=== PATIENT | female | born 1995 ===

== ENCOUNTER 2021-11-20 19:04 | Emergency (ER) | payer MEDICAID, SELFPAY ==
[2021-11-20 19:10] VITALS: BP 135/88; PULSE 87; RESP 18; TEMP 36.7; O2SAT 98; BMI 31.1
--- NOTE | 2021-11-20 19:20 | CRLHL7_ITS ---
For Patients: As a result of the Cures Act, medical imaging exams and procedure reports are released immediately into your electronic medical record. You may view this report before your referring provider. If you have questions, please contact your health care provider. INDICATION: Cough and dyspnea COMPARISON: December 09, 2020 TECHNIQUE: Single-view study FINDINGS: TUBES AND LINES: None. HEART AND MEDIASTINUM: The heart size is normal. The mediastinal contour appears normal for patient age. LUNGS AND PLEURAL SPACES: The lungs appear normal.The pleural spaces are unremarkable. OSSEOUS STRUCTURES: Age-appropriate appearance. No acute focal finding. IMPRESSION: No evidence of active pulmonary disease. Dictated by Fahad Foster MD @ 11/20/2021 8:07:14 PM (Electronically Signed)
--- NOTE | 2021-11-20 19:22 | ED_ITS ---
HPI - General Adult General Time Seen by Provider: : <Bernardino Catherine MD - Last Filed: 11/20/21 19:25> Date Seen: 11/20/21 <Bernardino Catherine MD - Last Filed: 11/20/21 19:25> Chief complaint: Shortness of Breath/Dyspnea <Bernardino Catherine MD - Last Filed: 11/20/21 19:25> Stated complaint: Wheezing <Bernardino Catherine MD - Last Filed: 11/20/21 19:25> Time Seen by Provider: 11/20/21 19:14 <Bernardino Catherine MD - Last Filed: 11/20/21 19:25> Source: patient <Bernardino Catherine MD - Last Filed: 11/20/21 19:25> Mode of arrival: ambulatory <Bernardino Catherine MD - Last Filed: 11/20/21 19:25> Limitations: no limitations <Bernardino Catherine MD - Last Filed: 11/20/21 19:25> History of Present Illness HPI narrative: 26-year-old female who comes in today with wheezing and cough. This started yesterday and continued today. She has a slight runny nose. She denies fever or chills. Some shortness of breath with activity. No chest pain. Daughter is ill at home with an upper respiratory infection. Patient has a history of asthma and has been using albuterol inhaler nebulizer today with minimal improvement. She denies any lower extremity swelling. No lightheadedness or dizziness. <Bernardino Catherine MD - Last Filed: 11/20/21 19:25> Related Data Home medications: Home Medications Medication Instructions Recorded Confirmed acetaminophen 500 mg tablet 500 mg PO Q4-6H PRN 11/20/21 11/20/21 albuterol sulfate 2.5 mg/3 mL 2.5 mg INHALATION Q4-6H PRN 11/20/21 11/20/21 (0.083 %) solution for nebulization albuterol sulfate 90 mcg/actuation 2 inh INHALATION Q4-6H PRN 11/20/21 11/20/21 aerosol inhaler duloxetine 30 mg capsule,delayed 30 mg PO DAILY 11/20/21 11/20/21 release (Cymbalta) ferrous sulfate 325 mg (65 mg 325 mg PO BID 11/20/21 11/20/21 iron) tablet fluoxetine 20 mg capsule (Prozac) 60 mg PO DAILY 11/20/21 11/20/21 fluticasone propionate 50 2 spray INTRANASAL DAILY PRN 11/20/21 11/20/21 mcg/actuation nasal spray,suspension (Flonase Allergy Relief) hydroxyzine HCl 25 mg tablet 25 mg PO Q6H PRN 11/20/21 11/20/21 levalbuterol tartrate 45 2 inh INHALATION Q4-6H PRN 11/20/21 11/20/21 mcg/actuation aerosol inhaler (Xopenex HFA) levonorgestrel 20 mcg/24 hours (7 INTRAUTERINE 11/20/21 yrs) 52 mg intrauterine device (Mirena) mometasone-formoterol HFA 100 2 inh INHALATION BID 11/20/21 11/20/21 mcg-5 mcg/actuation aerosol inhaler (Dulera) montelukast 10 mg tablet 10 mg PO DAILY 11/20/21 11/20/21 (Singulair) polyethylene glycol 3350 17 gram 17 g PO DAILY 11/20/21 11/20/21 oral powder packet (Miralax) vits,calcium no.73-iron 1 tab PO DAILY 11/20/21 11/20/21 fum 28 mg iron-folic acid 1 mg tablet triamcinolone acetonide 0.5 % 1 applic TOPICAL BID 11/20/21 11/20/21 topical cream <Bernardino Catherine MD - Last Filed: 11/20/21 19:25> Allergies/adverse reactions: Allergies Allergy/AdvReac Type Severity Reaction Status Date / Time nickel Allergy Mild contact Verified 11/20/21 19:11 dermatitis <Bernardino Catherine MD - Last Filed: 11/20/21 19:25> Review of Systems Status of ROS: Reports: 10 or more systems reviewed and unremarkable except as noted in History and below <Bernardino Catherine MD - Last Filed: 11/20/21 19:25> [facility] Medical History: Medical History (Updated 11/20/21 @ 20:22 by Ramon Arias MD) Acute eczema Adjustment disorder with mixed anxiety and depressed mood Anxiety Aphthous ulcer Asthma, mild persistent Cold sore Contact dermatitis due to nickel Dysmenorrhea Encounter for vaginal delivery Herpes simplex type 1 infection Hyperemesis gravidarum Major depressive disorder, recurrent severe without psychotic features Post-traumatic stress disorder, unspecified depression hemorrhage <Bernardino Catherine MD - Last Filed: 11/20/21 19:25> Exam Const: Vital Signs, click to edit/add: Vital Signs - 24 hr 11/20/21 19:10 Temperature 98.0 F Pulse Rate [Left P ulse Oximeter] 87 Respiratory Rate 18 Blood Pressure [Le ft Upper Arm] 135/88 Pulse Oximetry 98 <Bernardino Catherine MD - Last Filed: 11/20/21 19:25> Vital Signs, click to edit/add: Vital Signs - 24 hr 11/20/21 19:10 Temperature 98.0 F Pulse Rate [Left P ulse Oximeter] 87 Respiratory Rate 18 Blood Pressure [Le ft Upper Arm] 135/88 Pulse Oximetry 98 <Ramon Arias MD - Last Filed: 11/20/21 20:22> Documenting provider has reviewed patient's vital signs: yes <Bernardino Catherine MD - Last Filed: 11/20/21 19:25> Common normals: no apparent distress, oriented x3, alert and well nourished <Bernardino Catherine MD - Last Filed: 11/20/21 19:25> HENMT: Common normals: normocephalic, head/scalp atraumatic, external ears normal and external nose normal <Bernardino Catherine MD - Last Filed: 11/20/21 19:25> Head and scalp: normocephalic and atraumatic <Bernardino Catherine MD - Last Filed: 11/20/21 19:25> Nose: external nose normal <Bernardino Catherine MD - Last Filed: 11/20/21 19:25> External ear: external ears normal <Bernardino Catherine MD - Last Filed: 11/20/21 19:25> Eye: Common normals: PERRL and conjunctivae normal <Bernardino Catherine MD - Last Filed: 11/20/21 19:25> Conjunctiva: conjunctiva(e) normal <Bernardino Catherine MD - Last Filed: 11/20/21 19:25> Pupil: PERRL <Bernardino Catherine MD - Last Filed: 11/20/21 19:25> Neck & C-Spine: Common normals: full ROM, no lymphadenopathy and supple <Bernardino Catherine MD - Last Filed: 11/20/21 19:25> Chest: Common normals: palpation of chest normal <Bernardino Catherine MD - Last Filed: 11/20/21 19:25> Resp: Common normals: normal respiratory effort <Bernardino Catherine MD - Last Filed: 11/20/21 19:25> Effort & inspection: able to speak in complete sentences <Bernardino Catherine MD - Last Filed: 11/20/21 19:25> Other: Audible wheezing on exam but on auscultation mild expiratory wheezes bilaterally with upper airway wheezing. No hoarseness or hot potato voice. <Bernardino Catherine MD - Last Filed: 11/20/21 19:25> Cardio: Common normals: regular rate, regular rhythm and no murmurs <Bernardino Catherine MD - Last Filed: 11/20/21 19:25> Rate: regular rate <Bernardino Catherine MD - Last Filed: 11/20/21 19:25> Rhythm: regular rhythm <Bernardino Catherine MD - Last Filed: 11/20/21 19:25> GI: Common normals: Normal to inspection, nondistended, normoactive bowel sounds present, soft to palpation and non-tender <Bernardino Catherine MD - Last Filed: 11/20/21 19:25> Palpation: soft <Bernardino Catherine MD - Last Filed: 11/20/21 19:25> : Common normals: no CVA tenderness <Bernardino Catherine MD - Last Filed: 11/20/21 19:25> Bladder/kidney exam: no CVA tenderness <Bernardino Catherine MD - Last Filed: 11/20/21 19:25> Back & Pelvis: Common normals: no CVA tenderness and thoracic and lumbar spine normal to inspection <Bernardino Catherine MD - Last Filed: 11/20/21 19:25> Extremity: Common normals: normal to inspection, full ROM and no pedal edema <Bernardino Catherine MD - Last Filed: 11/20/21 19:25> Neuro: Common normals: oriented x3, CN's II-XII intact bilaterally and no focal motor deficits <Bernardino Catherine MD - Last Filed: 11/20/21 19:25> Sensorium/orientation: alert <Bernardino Catherine MD - Last Filed: 11/20/21 19:25> Psych: Common normals: mental status grossly normal <Bernardino Catherine MD - Last Filed: 11/20/21 19:25> Skin: Common normals: no rashes or lesions noted <Bernardino Catherine MD - Last Filed: 11/20/21 19:25> General skin exam: no rashes or lesions noted <Bernardino Catherine MD - Last Filed: 11/20/21 19:25> Course Course Hospital Course: Chest X ray unremarkable <Bernardino Catherine MD - Last Filed: 11/20/21 19:25> Reevaluation(s) Reevaluation #1: Sign out to Dr. Arias pending lab results and clinical course. <Bernardino Catherine MD - Last Filed: 11/20/21 19:25> Time: 20:00 <Bernardino Catherine MD - Last Filed: 11/20/21 19:25> Reevaluation #2: Pt feeling better after nebulizer treatment. <Ramon Arais MD - Last Filed: 11/20/21 20:22> Vital Signs Vital signs: Initial Vital Signs Temperature 98.0 F 11/20/21 19:10 Temperature Source Temporal Artery Scan 11/20/21 19:10 Pulse Rate 87 11/20/21 19:10 Respiratory Rate 18 11/20/21 19:10 Blood Pressure 135/88 11/20/21 19:10 Blood Pressure Mean 103 11/20/21 19:10 Blood Pressure Position Sitting 11/20/21 19:10 Pulse Oximetry 98 11/20/21 19:10 Oxygen Delivery Method 11/20/21 19:10 Vital Signs Temperature 98.0 F 11/20/21 19:10 Pulse Rate 87 11/20/21 19:10 Respiratory Rate 18 11/20/21 19:10 Blood Pressure 135/88 11/20/21 19:10 Pulse Oximetry 98 11/20/21 19:10 Temperature 98.0 F 11/20/21 19:10 Pulse Rate 87 11/20/21 19:10 Respiratory Rate 18 11/20/21 19:10 Blood Pressure 135/88 11/20/21 19:10 Pulse Oximetry 98 11/20/21 19:10 <Bernardino Catherine MD - Last Filed: 11/20/21 19:25> Initial Vital Signs Temperature 98.0 F 11/20/21 19:10 Temperature Source Temporal Artery Scan 11/20/21 19:10 Pulse Rate 87 11/20/21 19:10 Respiratory Rate 18 11/20/21 19:10 Blood Pressure 135/88 11/20/21 19:10 Blood Pressure Mean 103 11/20/21 19:10 Blood Pressure Position Sitting 11/20/21 19:10 Pulse Oximetry 98 11/20/21 19:10 Oxygen Delivery Method 11/20/21 19:10 Vital Signs Temperature 98.0 F 11/20/21 19:10 Pulse Rate 87 11/20/21 19:10 Respiratory Rate 18 11/20/21 19:10 Blood Pressure 135/88 11/20/21 19:10 Pulse Oximetry 98 11/20/21 19:10 Temperature 98.0 F 11/20/21 19:10 Pulse Rate 87 11/20/21 19:10 Respiratory Rate 18 11/20/21 19:10 Blood Pressure 135/88 11/20/21 19:10 Pulse Oximetry 98 11/20/21 19:10 <Ramon Arias MD - Last Filed: 11/20/21 20:22> Medical Decision Making MDM Narrative Medical decision making narrative: Patient seen and examined, prior records reviewed. Differential diagnosis includes but not limited to upper respiratory infection, asthma exacerbation, COVID infection, congestive heart failure, pneumonia. Patient presents with cough and wheezing since yesterday, history of asthma. On exam, no hypoxia, tachypnea, speaking in full sentences. She has some inspiratory wheezing and to a lesser extent expiratory wheezing. A DuoNeb and Solu-Medrol are ordered along with labs and x-ray. <Bernardino Catherine MD - Last Filed: 11/20/21 19:25> Medical Records Medical records reviewed: Yes I reviewed the patient's medical records <Bernardino Catherine MD - Last Filed: 11/20/21 19:25> Lab Data Lab results reviewed: Yes I reviewed the patient's lab results <Bernardino Catherine MD - Last Filed: 11/20/21 19:25> Discharge Plan Discharge Clinical Impression: Asthma with acute exacerbation <Bernardino Catherine MD - Last Filed: 11/20/21 19:25> Patient Disposition: Home, Self-Care <Bernardino Catherine MD - Last Filed: 11/20/21 19:25> Condition: Stable <Bernardino Catherine MD - Last Filed: 11/20/21 19:25> Instructions: Asthma (ED) <Bernardino Catherine MD - Last Filed: 11/20/21 19:25> Additional Instructions: Prednisone for 5 days per intymeds <Bernardino Catherine MD - Last Filed: 11/20/21 19:25> Activity Level: No Restrictions <Bernardino Catherine MD - Last Filed: 11/20/21 19:25> No Restrictions <Ramon Arias MD - Last Filed: 11/20/21 20:22> Discharge Diet: Regular <Bernardino Catherine MD - Last Filed: 11/20/21 19:25> Regular <Ramon Arias MD - Last Filed: 11/20/21 20:22> Prescriptions: No Action Dulera 100-5 mcg/actuation HFA aerosol inhaler 2 inh inhalation BID 0RF montelukast [Singulair] 10 mg tablet 10 mg PO DAILY 0RF levalbuterol tartrate [Xopenex HFA] 45 mcg/actuation HFA aerosol inhaler 2 inh inhalation Q4-6H PRN0RF Mirena 20 mcg/24 hours (7 yrs) 52 mg intrauterine device intrauterine 0RF polyethylene glycol 3350 [Miralax] 17 gram powder in packet 17 g PO DAILY 0RF vit,dwight [id number] 28 mg iron- 1 mg tablet 1 tab PO DAILY 0RF triamcinolone acetonide 0.5 % cream 1 applic topical BID 0RF acetaminophen 500 mg tablet 500 mg PO Q4-6H PRN0RF albuterol sulfate 90 mcg/actuation HFA aerosol inhaler 2 inh inhalation Q4-6H PRN0RF albuterol sulfate 2.5 mg /3 mL (0.083 %) solution for nebulization 2.5 mg inhalation Q4-6H PRN0RF fluticasone propionate [Flonase Allergy Relief] 50 mcg/actuation spray,suspension 2 spray intranasal DAILY PRN0RF Rx Instructions: administer into each nostril hydroxyzine HCl 25 mg tablet 25 mg PO Q6H PRN0RF duloxetine [Cymbalta] 30 mg capsule,delayed release(DR/EC) 30 mg PO DAILY 0RF ferrous sulfate 325 mg (65 mg iron) tablet 325 mg PO BID 0RF fluoxetine [Prozac] 20 mg capsule 60 mg PO DAILY 0RF <Bernardino Catherine MD - Last Filed: 11/20/21 19:25> Follow Up/Referrals: Anahy Alford DO [Primary Care Provider] - <Bernardino Catherine MD - Last Filed: 11/20/21 19:25> Stand Alone Forms: [facility] Info Instructions <Beranrdino Catherine MD - Last Filed: 11/20/21 19:25>
[2021-11-20] MEDS: METHYLPREDNISOLONE SOD SUCC 62.5 MG/ML (125) 125 MG IVP (19:50)
[2021-11-20] MEDS: IPRAT-ALBUT 0.5-2.5 MG/3 ML NEB 1 NEB IH (19:50)
--- NOTE | 2021-11-20 20:14 | PC.NURSE ---
Patient's lung sounds now clear throughout after duo-neb
[2021-11-20 20:46] LABS: PCR FLU A Negative PCR FLU A (Negative); PCR FLU B Negative PCR FLU B (Negative); SARS PCR* Negative SARS-CoV-2 (Negative)
== END 2021-11-20 20:37 | disposition home or self-care (01) ==
LOC: ED 20:28
PROVIDERS: Emergency Provider Family Medicine; PCP Family Medicine
DX: J45.901 Unspecified asthma with (acute) exacerbation (principal)
CPT/HCPCS: 71045; 87502; 87635; 94640; 96374; 99283; 99284; J2930

== ENCOUNTER 2022-01-05 19:25 | Emergency (ER) | payer MEDICAID, SELFPAY ==
[2022-01-05 19:45] VITALS: BP 140/89; PULSE 133; RESP 26; TEMP 35.5; O2SAT 95
--- NOTE | 2022-01-05 20:08 | CRLHL7_ITS ---
For Patients: As a result of the Century Cures Act, medical imaging exams and procedure reports are released immediately into your electronic medical record. You may view this report before your referring provider. If you have questions, please contact your health care provider. INDICATION: Asthma exacerbation. TECHNIQUE: Chest 2 views. COMPARISON: None. FINDINGS: Cardiovascular and mediastinum: Heart size and vasculature are normal in caliber and appearance. Lungs and pleural spaces: Lungs are clear. No sign of infiltrate or mass. No sign of pleural effusion. No pneumothorax. Bones and soft tissues: No significant findings. IMPRESSION: Mild peribronchial cuffing which can be seen with asthma. No focal consolidations. Dictated by Delta Mcgarry MD @ 01/05/2022 9:02:51 PM (Electronically Signed)
--- NOTE | 2022-01-05 20:09 | ED_ITS ---
HPI - General Adult General Time Seen by Provider: 20:09 Date Seen: 01/05/22 Chief complaint: Shortness of Breath/Dyspnea Stated complaint: Difficulty breathing Time Seen by Provider: 01/05/22 19:46 Source: patient History of Present Illness HPI narrative: Kassandra is a 26-year-old female past medical history includes mild intermittent asthma presents emerged department with worsening shortness of breath. Patient states that since yesterday she developed a cold with ongoing nasal congestion and cough, she was seen in clinic today and given some prednisone and cough syrup. Patient continues to have worsening shortness of breath and wheezing, cough is nonproductive, denies any fevers, chills myalgias arthralgias, no covert exposure. She denies any chest pain, lightheadedness or dizziness, she usually uses albuterol nebulizers, rescue inhaler and uses Singulair. She used to nebs this evening without any improvement. She has not had any nausea vomiting, abdominal pain or diarrhea. She has had COVID in the past Related Data Home Medications Medication Instructions Recorded Confirmed acetaminophen 500 mg tablet 500 mg PO Q4-6H PRN 11/20/21 01/05/22 albuterol sulfate 2.5 mg/3 mL 2.5 mg inhalation Q4-6H PRN 11/20/21 01/05/22 (0.083 %) solution for nebulization albuterol sulfate 90 mcg/actuation 2 inh inhalation Q4-6H PRN 11/20/21 01/05/22 aerosol inhaler duloxetine 30 mg capsule,delayed 30 mg PO DAILY 11/20/21 01/05/22 release (Cymbalta) ferrous sulfate 325 mg (65 mg 325 mg PO BID 11/20/21 01/05/22 iron) tablet fluoxetine 20 mg capsule (Prozac) 60 mg PO DAILY 11/20/21 01/05/22 fluticasone propionate 50 2 spray intranasal DAILY PRN 11/20/21 01/05/22 mcg/actuation nasal spray,suspension (Flonase Allergy Relief) hydroxyzine HCl 25 mg tablet 25 mg PO Q6H PRN 11/20/21 01/05/22 levalbuterol tartrate 45 2 inh inhalation Q4-6H PRN 11/20/21 01/05/22 mcg/actuation aerosol inhaler (Xopenex HFA) levonorgestrel 20 mcg/24 hours (7 1 device intrauterine .other 11/20/21 01/05/22 yrs) 52 mg intrauterine device (Mirena) mometasone-formoterol HFA 100 2 inh inhalation BID 11/20/21 01/05/22 mcg-5 mcg/actuation aerosol inhaler (Dulera) montelukast 10 mg tablet 10 mg PO DAILY 11/20/21 01/05/22 (Singulair) polyethylene glycol 3350 17 gram 17 g PO DAILY 11/20/21 01/05/22 oral powder packet (Miralax) vits,calcium no.73-iron 1 tab PO DAILY 11/20/21 01/05/22 fum 28 mg iron-folic acid 1 mg tablet triamcinolone acetonide 0.5 % 1 applic topical BID 11/20/21 01/05/22 topical cream Allergies Allergy/AdvReac Type Severity Reaction Status Date / Time nickel Allergy Mild contact Verified 01/05/22 19:50 dermatitis Review of Systems Status of ROS: Reports: 10 or more systems reviewed and unremarkable except as noted in History and below [facility] Medical History Acute eczema Adjustment disorder with mixed anxiety and depressed mood Anxiety Aphthous ulcer Asthma, mild persistent Cold sore Contact dermatitis due to nickel Dysmenorrhea Encounter for vaginal delivery Herpes simplex type 1 infection Hyperemesis gravidarum Major depressive disorder, recurrent severe without psychotic features Post-traumatic stress disorder, unspecified depression hemorrhage Social History Smoking Status: Never smoker Do you use any of these nicotine containing products: None Second hand tobacco smoke exposure: No How often do you have a drink containing alcohol: monthly or less How many standard drinks containing alcohol do you have on a typical day: 1 or 2 How often do you have six or more drinks on one occasion: Never AUDIT-C Alcohol total score: 1 Non-prescribed substance use: denies use Exam Narrative: Exam Narrative: General: No obvious distress sitting comfortably, nontoxic in appearance HEENT: Tympanic membranes within normal limits bilaterally oropharynx is clear moist pupils equal round reactive to light Neck: Supple full range of motion Lungs: Inspiratory and expiratory wheezes throughout, no tachypnea, no stridor, no respiratory distress Abdomen: Soft nontender Muscle skeletal: Moving upper lower extremities with no difficulty Neuro: Alert awake and oriented x3 Const: Vital Signs, click to edit/add: Vital Signs - 24 hr 01/05/22 19:45 01/05/22 21:33 Temperature 96 F L Pulse Rate [Left P ulse Oximeter] 133 H 126 H Respiratory Rate 26 H 18 Blood Pressure [Ri ght Upper Arm] 140/89 H Pulse Oximetry 95 96 Oxygen Delivery Me thod Room Air Room Air Course Course Hospital Course: 8:00 PM: AIDET performed. vitals show tachycardia, mild tachypnea, O2 sats 95% on room air, no fever. Workup will include IM dose Decadron 10 mg, will give her a DuoNeb, obtain XR chest two views. Reevaluation(s) Reevaluation #1: Imaging showed mild peribronchial cuffing seen with asthma. No consolidation or infiltrate. Patient is feeling better after above care given, she has been taking DayQuil with phenylephrine, she also has anxiety, her heart rate did improve but was still elevated, plan would be to discharge she will continue with her albuterol nebulizers every 4-6 hours, she does have prescription for cough suppressant as well as prednisone. She should follow up with her primary care provider over the next 5-7 days. Vital Signs Vital signs: Initial Vital Signs Temperature 96 F L 01/05/22 19:45 Temperature Source Temporal Artery Scan 01/05/22 19:45 Pulse Rate 133 H 01/05/22 19:45 Respiratory Rate 26 H 01/05/22 19:45 Blood Pressure 140/89 H 01/05/22 19:45 Blood Pressure Mean 106 01/05/22 19:45 Blood Pressure Position Sitting 01/05/22 19:45 Pulse Oximetry 95 01/05/22 19:45 Oxygen Delivery Method 01/05/22 19:45 Vital Signs Temperature 96 F L 01/05/22 19:45 Pulse Rate 133 H 01/05/22 19:45 Respiratory Rate 26 H 01/05/22 19:45 Blood Pressure 140/89 H 01/05/22 19:45 Pulse Oximetry 95 01/05/22 19:45 Oxygen Delivery Method 01/05/22 19:45 Temperature 96 F L 01/05/22 19:45 Pulse Rate 126 H 01/05/22 21:33 Respiratory Rate 18 01/05/22 21:33 Blood Pressure 140/89 H 01/05/22 19:45 Pulse Oximetry 96 01/05/22 21:33 Oxygen Delivery Method 01/05/22 21:33 Discharge Plan Discharge Clinical Impression: Asthma with acute exacerbation Patient Disposition: Home, Self-Care Condition: Improved Instructions: Asthma (ED) Additional Instructions: To follow up with a primary care provider in the next 5-7 days. To continue with the prednisone as prescribed as well as the Robitussin, albuterol nebulizers every 4-6 hours as needed. Return if worsening symptoms. Prescriptions: No Action Dulera 100-5 mcg/actuation HFA aerosol inhaler 2 inh inhalation BID montelukast [Singulair] 10 mg tablet 10 mg PO DAILY levalbuterol tartrate [Xopenex HFA] 45 mcg/actuation HFA aerosol inhaler 2 inh inhalation Q4-6H PRN Mirena 20 mcg/24 hours (7 yrs) 52 mg intrauterine device 1 device intrauterine .other polyethylene glycol 3350 [Miralax] 17 gram powder in packet 17 g PO DAILY vit,dwight [id number] 28 mg iron- 1 mg tablet 1 tab PO DAILY triamcinolone acetonide 0.5 % cream 1 applic topical BID acetaminophen 500 mg tablet 500 mg PO Q4-6H PRN albuterol sulfate 90 mcg/actuation HFA aerosol inhaler 2 inh inhalation Q4-6H PRN albuterol sulfate 2.5 mg /3 mL (0.083 %) solution for nebulization 2.5 mg inhalation Q4-6H PRN fluticasone propionate [Flonase Allergy Relief] 50 mcg/actuation spray,suspension 2 spray intranasal DAILY PRN Rx Instructions: administer into each nostril hydroxyzine HCl 25 mg tablet 25 mg PO Q6H PRN duloxetine [Cymbalta] 30 mg capsule,delayed release(DR/EC) 30 mg PO DAILY ferrous sulfate 325 mg (65 mg iron) tablet 325 mg PO BID fluoxetine [Prozac] 20 mg capsule 60 mg PO DAILY Follow Up/Referrals: Anahy Alford DO [Primary Care Provider] - [facility]
[2022-01-05] MEDS: IPRAT-ALBUT 0.5-2.5 MG/3 ML NEB 1 NEB IH (20:17)
[2022-01-05] MEDS: dexAMETHasone 10 MG/ML inj IM (20:18)
--- NOTE | 2022-01-05 20:40 | PC.NURSE ---
Lungs auscultated post duoneb, lungs now clear throughout. Patient less SOB.
[2022-01-05 21:33] VITALS: PULSE 126; RESP 18; O2SAT 96
== END 2022-01-05 22:00 | disposition home or self-care (01) ==
PROVIDERS: Emergency Provider Student in an Organized Health Care Education/Training Program; PCP Family Medicine
DX: J45.901 Unspecified asthma with (acute) exacerbation (principal)
CPT/HCPCS: 71046; 94640; 96372; 99283; 99284; J1100

== ENCOUNTER 2022-04-02 14:34 | Emergency (ER) | payer MEDICAID, SELFPAY ==
[2022-04-02 14:41] VITALS: BP 129/79; PULSE 124; RESP 22; TEMP 38.4; O2SAT 98; BMI 31.9
--- NOTE | 2022-04-02 14:57 | CRLHL7_ITS ---
For Patients: As a result of the Cures Act, medical imaging exams and procedure reports are released immediately into your electronic medical record. You may view this report before your referring provider. If you have questions, please contact your health care provider. Indication: Shortness breath Technique: Portable chest Comparison: No comparison Findings: Normal cardiac mediastinal silhouette. The lungs are clear. Dictated by Tangela Stephens MD @ 04/02/2022 3:39:18 PM (Electronically Signed)
--- NOTE | 2022-04-02 14:58 | ED_ITS ---
HPI - General Adult General Date Seen: 04/02/22 Chief complaint: Shortness of Breath/Dyspnea Stated complaint: Short of Breath Cold and Flu Symptoms Time Seen by Provider: 04/02/22 14:38 Source: patient History of Present Illness HPI narrative: Patient is a 26-year-old young woman with a an underlying history of asthma. She presents with shortness of breath and wheezing and associated upper respiratory illness. She has 2 kids who are positive for influenza right now. She became ill yesterday with body aches, fever, cough. She says today she has just not been able to get her wheezing under control. Does have albuterol inhalers and she last used one a couple of hours ago. She has never been hospitalized for her asthma before. She does not smoke. She denies chest pain, vomiting, rashes. Related Data Home Medications Medication Instructions Recorded Confirmed acetaminophen 500 mg tablet 500 mg PO Q4-6H PRN 11/20/21 01/05/22 albuterol sulfate 2.5 mg/3 mL 2.5 mg inhalation Q4-6H PRN 11/20/21 04/02/22 (0.083 %) solution for nebulization albuterol sulfate 90 mcg/actuation 2 inh inhalation Q4-6H PRN 11/20/21 04/02/22 aerosol inhaler duloxetine 30 mg capsule,delayed 30 mg PO DAILY 11/20/21 04/02/22 release (Cymbalta) ferrous sulfate 325 mg (65 mg 325 mg PO BID 11/20/21 04/02/22 iron) tablet fluoxetine 20 mg capsule (Prozac) 60 mg PO DAILY 11/20/21 04/02/22 fluticasone propionate 50 2 spray intranasal DAILY PRN 11/20/21 04/02/22 mcg/actuation nasal spray,suspension (Flonase Allergy Relief) hydroxyzine HCl 25 mg tablet 25 mg PO Q6H PRN 11/20/21 04/02/22 levalbuterol tartrate 45 2 inh inhalation Q4-6H PRN 11/20/21 01/05/22 mcg/actuation aerosol inhaler (Xopenex HFA) levonorgestrel 20 mcg/24 hours (8 1 device intrauterine .other 11/20/21 04/02/22 yrs) 52 mg intrauterine device (Mirena) mometasone-formoterol HFA 100 2 inh inhalation BID 11/20/21 04/02/22 mcg-5 mcg/actuation aerosol inhaler (Dulera) montelukast 10 mg tablet 10 mg PO DAILY 11/20/21 04/02/22 (Singulair) polyethylene glycol 3350 17 gram 17 g PO DAILY 11/20/21 04/02/22 oral powder packet (Miralax) vits,calcium no.73-iron 1 tab PO DAILY 11/20/21 01/05/22 fum 28 mg iron-folic acid 1 mg tablet triamcinolone acetonide 0.5 % 1 applic topical BID 11/20/21 01/05/22 topical cream Allergies Allergy/AdvReac Type Severity Reaction Status Date / Time nickel Allergy Mild contact Verified 04/02/22 14:48 dermatitis Review of Systems Status of ROS: Reports: 10 or more systems reviewed and unremarkable except as noted in History and below [facility] Medical History Acute eczema Adjustment disorder with mixed anxiety and depressed mood Anxiety Aphthous ulcer Asthma, mild persistent Cold sore Contact dermatitis due to nickel Dysmenorrhea Encounter for vaginal delivery Herpes simplex type 1 infection Hyperemesis gravidarum Major depressive disorder, recurrent severe without psychotic features Post-traumatic stress disorder, unspecified depression hemorrhage Social History Smoking Status: Never smoker Do you use any of these nicotine containing products: None Second hand tobacco smoke exposure: No How often do you have a drink containing alcohol: monthly or less How many standard drinks containing alcohol do you have on a typical day: 1 or 2 How often do you have six or more drinks on one occasion: Never AUDIT-C Alcohol total score: 1 Non-prescribed substance use: denies use Exam Narrative: Exam Narrative: Vital signs as noted above. In general, an alert, conversant woman. Audible wheezing. Speaks in full sentences. Head: Normocephalic, atraumatic. Eyes: Pupils are equal reactive. Extraocular movements are full. Conjunctivae are normal. ENT: Mucous membranes are moist. Throat is normal. Neck: Supple without lymphadenopathy. No adenopathy. No stridor. Heart: Tachycardic, regular. Lungs: Inspiratory and expiratory wheezes, tachypnea, moderately increased work of breathing. Abdomen: Soft and nontender. No organomegaly. Extremities: Well perfused. No edema. No calf tenderness. Pulses intact. Neurologic: Patient is alert and oriented to person and place. Speech is fluent. Face is symmetric. Moves all extremities equally. Affect: Normal. Skin: Warm and dry. Well perfused. Const: Vital Signs, click to edit/add: Vital Signs - 24 hr 04/02/22 14:41 04/02/22 15:41 04/02/22 15:56 Temperature 101.1 F H Pulse Rate [Right Pulse Oximeter] 124 H 133 H Respiratory Rate 22 28 H Blood Pressure [Le ft Upper Arm] 129/79 Pulse Oximetry 98 97 92 Oxygen Delivery Me thod Room Air Room Air 04/02/22 16:05 Temperature Pulse Rate [Right Pulse Oximeter] 128 H Respiratory Rate 22 Blood Pressure [Le ft Upper Arm] Pulse Oximetry 97 Oxygen Delivery Me thod Documenting provider has reviewed patient's vital signs: yes Course Course Hospital Course: To start, will try a DuoNeb and see if we can improve her wheezing. Prednisone 60 mg orally. COVID, influenza and RSV swab to confirm that influenza is her only illness at this time. Chest x-ray to rule out pneumonia. Wheezing is significantly improved with DuoNeb. She has some scattered expiratory wheezes but is moving air much better. Incentive spirometer improved from 200-375. Her heart rate is up from 124-133 post neb. She is febrile which accounts for probably some of her tachycardia, and significant beta agonists are probably responsible for a portion of this as well. She does say that she is hydrating well at home. She is wondering when she can go as her mother is waiting. I gave her some Tylenol here. Chest x-ray by my review is negative. Final radiology report is likewise negative. Viral swab is pending at this time. Given her significantly positive response to the DuoNeb, it is likely reasonable to let her go home, hopefully the prednisone will help improve her wheezing. If she is not improved in however, she will need to return to the ER. Given underlying asthma, I am recommending Tamiflu as well. Vital Signs Vital signs: Initial Vital Signs Temperature 101.1 F H 04/02/22 14:41 Temperature Source Oral 04/02/22 14:41 Pulse Rate 124 H 04/02/22 14:41 Pulse Rhythm 04/02/22 14:41 Respiratory Rate 22 04/02/22 14:41 Blood Pressure 129/79 04/02/22 14:41 Blood Pressure Mean 95 04/02/22 14:41 Blood Pressure Position Supine 04/02/22 14:41 Pulse Oximetry 98 04/02/22 14:41 Oxygen Delivery Method 04/02/22 14:41 Vital Signs Temperature 101.1 F H 04/02/22 14:41 Pulse Rate 124 H 04/02/22 14:41 Respiratory Rate 22 04/02/22 14:41 Blood Pressure 129/79 04/02/22 14:41 Pulse Oximetry 98 04/02/22 14:41 Oxygen Delivery Method 04/02/22 14:41 Temperature 101.1 F H 04/02/22 14:41 Pulse Rate 128 H 04/02/22 16:05 Respiratory Rate 22 04/02/22 16:05 Blood Pressure 129/79 04/02/22 14:41 Pulse Oximetry 97 04/02/22 16:05 Oxygen Delivery Method 04/02/22 15:56 Medical Decision Making Lab Data Labs: Lab Results 04/02/22 Range/Units 15:25 SARS-CoV-2 (PCR) Negative SARS-CoV-2 (Negative) Influenza Type A (PCR) POSITIVE PCR FLU A A (Negative) Influenza Type B (PCR) Negative PCR FLU B (Negative) RSV (PCR) Negative PCR RSV (Negative) Discharge Plan Discharge Clinical Impression: Asthma with acute exacerbation, Influenza Patient Disposition: Home, Self-Care Condition: Improved Instructions: Asthma (DC) Additional Instructions: Ibuprofen or Tylenol as needed for fever. Prednisone as prescribed. Continue albuterol nebs/inhaler as needed for wheezing. Tamiflu. Return at any time for wheezing/shortness of breath it is not improving with these measures. If you have severe shortness of breath that does not improve with your rescue inhaler, call 911. Prescriptions: No Action Dulera 100-5 mcg/actuation HFA aerosol inhaler 2 inh inhalation BID montelukast [Singulair] 10 mg tablet 10 mg PO DAILY levalbuterol tartrate [Xopenex HFA] 45 mcg/actuation HFA aerosol inhaler 2 inh inhalation Q4-6H PRN Mirena 20 mcg/24 hours (7 yrs) 52 mg intrauterine device 1 device intrauterine .other polyethylene glycol 3350 [Miralax] 17 gram powder in packet 17 g PO DAILY vit,dwight 65-awaz-[id number] 28 mg iron- 1 mg tablet 1 tab PO DAILY triamcinolone acetonide 0.5 % cream 1 applic topical BID acetaminophen 500 mg tablet 500 mg PO Q4-6H PRN albuterol sulfate 90 mcg/actuation HFA aerosol inhaler 2 inh inhalation Q4-6H PRN albuterol sulfate 2.5 mg /3 mL (0.083 %) solution for nebulization 2.5 mg inhalation Q4-6H PRN fluticasone propionate [Flonase Allergy Relief] 50 mcg/actuation spray,suspension 2 spray intranasal DAILY PRN Rx Instructions: administer into each nostril hydroxyzine HCl 25 mg tablet 25 mg PO Q6H PRN duloxetine [Cymbalta] 30 mg capsule,delayed release(DR/EC) 30 mg PO DAILY ferrous sulfate 325 mg (65 mg iron) tablet 325 mg PO BID fluoxetine [Prozac] 20 mg capsule 60 mg PO DAILY Follow Up/Referrals: Anahy Alford DO [Primary Care Provider] - Stand Alone Forms: [facility] Info Instructions
[2022-04-02] MEDS: IPRAT-ALBUT 0.5-2.5 MG/3 ML NEB 1 NEB IH (15:06)
[2022-04-02] MEDS: ACETAMINOPHEN 500 MG TABLET 1000 MG PO (15:40)
[2022-04-02] MEDS: predniSONE 20 MG TABLET 60 MG PO (15:40)
[2022-04-02 15:41] VITALS: PULSE 133; O2SAT 97
[2022-04-02 15:56] VITALS: RESP 28; O2SAT 92
--- NOTE | 2022-04-02 15:58 | RESP.RT ---
Pre peak flow, 200 Lpm, predicted 450 Lpm, post peak flow 375 Lpm, patient had albuterol nebulized treatment at home 2 hours prior to arrival and used Albuterol MDI numerous times in last 6 hours. BBS with inspiratory/expiratory wheezing with expiratory end musical note. Heart rate 125 to 135 pre/during/post treatment.
[2022-04-02 16:05] VITALS: PULSE 128; RESP 22; O2SAT 97
[2022-04-02 16:26] LABS: PCR FLU A POSITIVE PCR FLU A (Negative); PCR FLU B Negative PCR FLU B (Negative); PCR RSV Negative PCR RSV (Negative); SARS PCR* Negative SARS-CoV-2 (Negative)
== END 2022-04-02 16:13 | disposition home or self-care (01) ==
PROVIDERS: Emergency Provider Emergency Medicine; PCP Family Medicine
DX: J45.901 Unspecified asthma with (acute) exacerbation (principal); J09.X2 Influenza due to identified novel influenza A virus with other respiratory manifestations
CPT/HCPCS: 71045; 87502; 87634; 87635; 94640; 99284; A9270; J7512

== ENCOUNTER 2022-06-20 20:28 | Outpatient (CLI) | payer MEDICAID, SELFPAY | END 2022-06-20 20:29 | disposition home or self-care (01) | PROVIDERS: PCP Family Medicine; Visit Provider Internal Medicine | DX: G47.10 Hypersomnia, unspecified (principal) | CPT/HCPCS: 95810 ==

== ENCOUNTER 2022-08-11 10:47 | Outpatient (RCR) | payer MEDICAID, SELFPAY | END 2022-11-09 23:59 | disposition home or self-care (01) | PROVIDERS: PCP Family Medicine; Visit Provider Physician Assistant | DX: H69.81 Other specified disorders of Eustachian tube, right ear (principal); R42 Dizziness and giddiness; M54.2 Cervicalgia; Z51.89 Encounter for other specified aftercare | CPT/HCPCS: 97162; 97535 ==

== ENCOUNTER 2023-06-03 07:29 | Emergency (ER) | payer OTHER, SELFPAY ==
[2023-06-03 07:38] VITALS: BP 127/80; PULSE 86; RESP 18; TEMP 36.7; O2SAT 95; BMI 31.9
--- NOTE | 2023-06-03 07:58 | CRLHL7_ITS ---
For Patients: As a result of the Cures Act, medical imaging exams and procedure reports are released immediately into your electronic medical record. You may view this report before your referring provider. If you have questions, please contact your health care provider. INDICATION: Jumping on trampoline COMPARISON: None. TECHNIQUE: Three views right knee. FINDINGS: BONES: Mildly asymmetric subarticular sclerosis in the medial tibial plateau. No cortical disruption. Normal mineralization. No focal bone lesion. JOINT: Normal knee joint alignment. No knee joint effusion. Joint spaces: Normal. Soft Tissues: Normal. No foreign body. IMPRESSION: Possible impaction type fracture in the right medial tibial plateau. No articular surface or cortical disruption seen. Dictated by Beena Flores MD @ 06/03/2023 8:36:01 AM (Electronically Signed)
--- NOTE | 2023-06-03 07:59 | ED.LOWEXIN ---
HPI - Extremity Injury (Lower) General Chief Complaint: Extremity Pain/Injury, Lower Stated Complaint: R knee injury Time Seen by Provider: 06/03/23 07:49 History of Present Illness HPI Narrative: 27-year-old female comes in reporting an injury to her right knee that occurred last evening. She was jumping on a bouncy item with other children when she twisted her knee. She was able to ambulate afterwards but this morning her knee is more stiff and painful with any weight-bearing. She reports pain on the medial aspect of her right knee. She did not have any other injury with this event. Related Data Home Medications Medication Instructions Recorded Confirmed acetaminophen 500 mg tablet 500 mg PO Q4-6H PRN 11/20/21 05/21/23 albuterol sulfate 2.5 mg/3 mL 2.5 mg inhalation Q4-6H PRN 11/20/21 05/21/23 (0.083 %) solution for nebulization albuterol sulfate 90 mcg/actuation 2 inh inhalation Q4-6H PRN 11/20/21 05/21/23 aerosol inhaler duloxetine 30 mg capsule,delayed 30 mg PO DAILY 11/20/21 05/21/23 release (Cymbalta) ferrous sulfate 325 mg (65 mg 325 mg PO BID 11/20/21 05/21/23 iron) tablet fluoxetine 20 mg capsule (Prozac) 60 mg PO DAILY 11/20/21 05/21/23 fluticasone propionate 50 2 spray intranasal DAILY PRN 11/20/21 05/21/23 mcg/actuation nasal spray,suspension (Flonase Allergy Relief) hydroxyzine HCl 25 mg tablet 25 mg PO Q6H PRN 11/20/21 05/21/23 levalbuterol tartrate 45 2 inh inhalation Q4-6H PRN 11/20/21 05/21/23 mcg/actuation aerosol inhaler (Xopenex HFA) levonorgestrel 21 mcg/24 hours (8 1 device intrauterine .other 11/20/21 05/21/23 yrs) 52 mg intrauterine device (Mirena) mometasone-formoterol HFA 100 2 inh inhalation BID 11/20/21 05/21/23 mcg-5 mcg/actuation aerosol inhaler (Dulera) montelukast 10 mg tablet 10 mg PO DAILY 11/20/21 05/21/23 (Singulair) polyethylene glycol 3350 17 gram 17 g PO DAILY 11/20/21 05/21/23 oral powder packet (Miralax) triamcinolone acetonide 0.5 % 1 applic topical BID 11/20/21 05/21/23 topical cream Previous Rx's Medication Instructions Recorded hydrocodone 5 mg-acetaminophen 325 1 tab PO Q4-6H PRN pain #15 tabs 06/03/23 mg tablet Allergies Allergy/AdvReac Type Severity Reaction Status Date / Time nickel Allergy Mild contact Verified 05/21/23 11:10 dermatitis Review of Systems Status of ROS: Reports: 10 or more systems reviewed and unremarkable except as noted in History and below Narrative: Constitutional: No fevers, no weight gain or loss. Eyes: No discharge. No vision changes. HENT: No congestion, no sore throat, no ear pain. Cardiovascular: No chest pain, no palpitations. Respiratory: No shortness of breath, no wheezes, no cough. Gastrointestinal: No abdominal pain, no vomiting, no diarrhea. Genitourinary: No dysuria, no hematuria. Musculoskeletal: Right knee pain with decreased range of motion. Skin: No rashes, no pruritis. Neurological: No dizziness, weakness, sensory change, speech change. Endo/Heme/Allergies: No bruising or bleeding. No polydipsia. Pysch: no suicidality, no anxiety, no insomnia. All other systems reviewed and are negative. [facility] Medical History Acute eczema Adjustment disorder with mixed anxiety and depressed mood Anxiety Aphthous ulcer Asthma, mild persistent Cold sore Contact dermatitis due to nickel Dysmenorrhea Encounter for vaginal delivery Herpes simplex type 1 infection Hyperemesis gravidarum Major depressive disorder, recurrent severe without psychotic features Post-traumatic stress disorder, unspecified depression hemorrhage Social History Smoking Status: Never smoker Do you use any of these nicotine containing products: None Second hand tobacco smoke exposure: No How often do you have a drink containing alcohol: monthly or less How many standard drinks containing alcohol do you have on a typical day: 1 or 2 How often do you have six or more drinks on one occasion: Never AUDIT-C Alcohol total score: 1 Non-prescribed substance use: denies use service: No Exam Narrative: Exam Narrative: Constitutional: Well-developed, well-nourished, no acute distress. HEENT: Normocephalic, atraumatic. Neck: Normal range of motion. Nontender. Supple. Heart: Intact distal pulses. Lungs: No chest discomfort. No wheezes, rhonchi, or rales. Abdomen: Nontender. Back: Normal range of motion. Extremities: Mild swelling of the right knee with tenderness when palpating on the medial aspect. Is also tenderness with valgus stress to the knee joint. Sarah's test is normal. Skin: Intact. No rash. Warm. No erythema or pallor. Neurologic: No altered sensation. No weakness. Alert and oriented. Psychiatric: No suicidality. No anxiety or depression. No insomnia. Nursing notes and vitals signs are reviewed. Const: Vital Signs, click to edit/add: Vital Signs - 24 hr 06/03/23 07:38 Temperature 98.1 F Pulse Rate [Pulse Oximeter] 86 Respiratory Rate 18 Blood Pressure [Ri ght Upper Arm] 127/80 Pulse Oximetry 95 Oxygen Delivery Me thod Room Air Course Vital Signs Vital signs: Initial Vital Signs Temperature 98.1 F 06/03/23 07:38 Temperature Source Temporal Artery Scan 06/03/23 07:38 Pulse Rate 86 06/03/23 07:38 Pulse Rhythm Regular 06/03/23 07:38 Respiratory Rate 18 06/03/23 07:38 Blood Pressure 127/80 06/03/23 07:38 Blood Pressure Mean 95 06/03/23 07:38 Blood Pressure Position Supine 06/03/23 07:38 Pulse Oximetry 95 06/03/23 07:38 Oxygen Delivery Method Room Air 06/03/23 07:38 Vital Signs Temperature 98.1 F 06/03/23 07:38 Pulse Rate 86 06/03/23 07:38 Respiratory Rate 18 06/03/23 07:38 Blood Pressure 127/80 06/03/23 07:38 Pulse Oximetry 95 06/03/23 07:38 Oxygen Delivery Method Room Air 06/03/23 07:38 Temperature 98.1 F 06/03/23 07:38 Pulse Rate 86 06/03/23 07:38 Respiratory Rate 18 06/03/23 07:38 Blood Pressure 127/80 06/03/23 07:38 Pulse Oximetry 95 06/03/23 07:38 Oxygen Delivery Method Room Air 06/03/23 07:38 MDM - Extremity Injury (Lower) MDM Narrative Medical decision making narrative: This patient comes in with an injury to her right knee that occurred last evening. She has lots of pain with bearing weight and reports pain in the medial aspect of her right knee. X-ray is obtained which shows possibility of a compaction type fracture of the medial aspect of the tibia plateau. A CT scan was then obtained which does increase the probability of this kind of bony injury. Additionally there is evidence of MCL sprain. The patient was placed in a knee immobilizer and fitted for crutches. She is instructed not to bear weight on this leg and will need to follow-up with orthopedic clinic. She did receive a prescription for [place]. I also provided to return to work note. Imaging Data xr r knee: Radiologist's impression: Possible impaction type fracture in the right medial tibial plateau. No articular surface or cortical disruption seen. CT R Knee: Radiologist's impression: Probable contusion or impaction injury in the medial tibial plateau without articular surface disruption or discrete fracture line. Secondary findings of medial collateral ligament sprain. Discharge Plan Discharge Clinical Impression: MCL sprain of right knee Patient Disposition: Home, Self-Care Condition: Unchanged Additional Instructions: Wear knee immobilizer and use crutches for nonweightbearing on the right leg. Follow-up with orthopedic clinic. Call [phone] for appointment. Use medication also as needed and directed for pain. Prescriptions: New hydrocodone-acetaminophen 5-325 mg tablet 1 tab PO Q4-6H PRN (Reason: pain) Qty: 15 0RF No Action Dulera 100-5 mcg/actuation HFA aerosol inhaler 2 inh inhalation BID montelukast [Singulair] 10 mg tablet 10 mg PO DAILY levalbuterol tartrate [Xopenex HFA] 45 mcg/actuation HFA aerosol inhaler 2 inh inhalation Q4-6H PRN Mirena 20 mcg/24 hours (7 yrs) 52 mg intrauterine device 1 device intrauterine .other polyethylene glycol 3350 [Miralax] 17 gram powder in packet 17 g PO DAILY triamcinolone acetonide 0.5 % cream 1 applic topical BID acetaminophen 500 mg tablet 500 mg PO Q4-6H PRN albuterol sulfate 90 mcg/actuation HFA aerosol inhaler 2 inh inhalation Q4-6H PRN albuterol sulfate 2.5 mg /3 mL (0.083 %) solution for nebulization 2.5 mg inhalation Q4-6H PRN fluticasone propionate [Flonase Allergy Relief] 50 mcg/actuation spray,suspension 2 spray intranasal DAILY PRN Rx Instructions: administer into each nostril hydroxyzine HCl 25 mg tablet 25 mg PO Q6H PRN duloxetine [Cymbalta] 30 mg capsule,delayed release(DR/EC) 30 mg PO DAILY ferrous sulfate 325 mg (65 mg iron) tablet 325 mg PO BID fluoxetine [Prozac] 20 mg capsule 60 mg PO DAILY Follow Up/Referrals: Anahy Alford DO [Primary Care Provider] - Stand Alone Forms: [facility] Info Instructions
--- NOTE | 2023-06-03 08:45 | CRLHL7_ITS ---
For Patients: As a result of the Century Cures Act, medical imaging exams and procedure reports are released immediately into your electronic medical record. You may view this report before your referring provider. If you have questions, please contact your health care provider. Indication: Pain after jumping on trampoline with abnormal x-ray Technique: CT of the right knee without intravenous or intra-articular contrast. Multiplanar reformats are included. Comparison: Same day radiographs Findings: Sclerosis in the subarticular medial tibial plateau without a discrete fracture line. Findings can be seen with a contusion tight injury. Normal alignment. No knee joint effusion. Mild edema along the medial collateral ligament likely indicates an underlying sprain. Although the exam is not ideal for the evaluation of the intra-articular structures, the anterior cruciate ligament and posterior cruciate ligament both appear intact. Grossly normal noncontrast CT of both menisci. No soft tissue mass. Impression: Probable contusion or impaction injury in the medial tibial plateau without articular surface disruption or discrete fracture line. Secondary findings of medial collateral ligament sprain. Please note that all CT scans at this facility use dose modulation, iterative reconstruction, and/or weight-based dosing when appropriate to reduce radiation dose to as low as reasonably achievable. Dictated by Beena Flores MD @ 06/03/2023 9:23:21 AM (Electronically Signed)
--- NOTE | 2023-06-03 10:24 | ED.NURSE ---
was able to ambulate with crutches. was aware that she should be non weight bearing on the right leg. has knee immobilizer on.
== END 2023-06-03 10:05 | disposition home or self-care (01) ==
PROVIDERS: Emergency Provider Emergency Medicine Emergency Medical Services; PCP Family Medicine
DX: S83.91XA Sprain of unspecified site of right knee, initial encounter (principal); Y93.39 Activity, other involving climbing, rappelling and jumping off
CPT/HCPCS: 73562; 73700; 99283; 99284

== ENCOUNTER 2024-05-04 01:19 | Emergency (ER) | payer OTHER, SELFPAY ==
[2024-05-04 01:20] VITALS: BP 190/106; PULSE 130; RESP 26; TEMP 36.4; O2SAT 97; BMI 32.9
[2024-05-04 01:50] VITALS: BP 111/74; PULSE 109; RESP 20; O2SAT 95
--- OUTSIDE RECORDS SUMMARY | 2024-05-04 03:31 | XMS_ITS | Continuity of Care Document ---
Author Name [facility] Address Unknown Organization Unknown Address Unknown Procedures FILTER APPLIED:Only known Procedures with Onset Date within the last 5 years Procedure Date Procedure Provider Additiona l Information Status [facility] RC METHACHOLINE CHALLENGE (76731) Completed [facility] PFT INHALATION BRONCHIAL CHALLENGE W/DRUGS (36231) Completed X-RAY EXAM OF KNEE 3 (75955) Completed EMERGENCY DEPT VISIT MOD MDM (07998) Completed EMERGENCY DEPT VISIT LOW MDM (68419) Completed CT LOWER EXTREMITY W/O DYE (10128) Completed Encounters FILTER APPLIED:Only known Encounters with Admission Date within the last 5 years Encounter Location Admission Discharge Billing Code [employer] [facility] [id number]
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
--- OUTSIDE RECORDS SUMMARY | 2024-05-04 03:42 | XMS_ITS | Continuity of Care Document ---
Author Name [facility] Address Unknown Organization Unknown Address Unknown Procedures FILTER APPLIED:Only known Procedures with Onset Date within the last 5 years Procedure Date Procedure Provider Additiona l Information Status [facility] RC METHACHOLINE CHALLENGE (28665) Completed [facility] PFT INHALATION BRONCHIAL CHALLENGE W/DRUGS (19496) Completed X-RAY EXAM OF KNEE 3 (38888) Completed EMERGENCY DEPT VISIT MOD MDM (55515) Completed EMERGENCY DEPT VISIT LOW MDM (08904) Completed CT LOWER EXTREMITY W/O DYE (79044) Completed Encounters FILTER APPLIED:Only known Encounters with Admission Date within the last 5 years Encounter Location Admission Discharge Billing Code [facility] [id number]
[2024-05-04] MEDS: hydrOXYzine pamoate 25 MG CAPSULE 50 MG PO (05:47)
[2024-05-04] MEDS: IPRAT-ALBUT 0.5-2.5 MG/3 ML NEB 1 NEB IH (05:47)
[2024-05-04] MEDS: predniSONE 20 MG TABLET 60 MG PO (05:47)
[2024-05-04] MEDS: RACEPINEPHRINE HCL 0.5 ML VIAL.NEB NEB (05:47)
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
== END 2024-05-04 05:49 | disposition home or self-care (01) ==
LOC: ED 03:41
PROVIDERS: Emergency Provider Family Medicine; PCP Family Medicine
DX: J98.01 Acute bronchospasm (principal)
CPT/HCPCS: 94640; 99283; 99284; A9270; J7512

== ENCOUNTER 2024-11-21 20:46 | Emergency (ER) | payer OTHER, SELFPAY ==
--- OUTSIDE RECORDS SUMMARY | 2024-11-21 20:48 | XMS_ITS | Clinical Summary ---
Author Organization [facility] Address [address] [place] [address] Care Team Providers Care Radiological Technician Name Role Phone Anahy Alford DO Primary Care Provider [phone] Allergies Active Allergy Reactions Criticality Noted Date Comments Nickel Contact Dermatitis Low 11/04/2020 Medications polyethylene glycoL (MIRALAX) 17 gram/dose powderIndication s:Constipation, acute Mix 1 scoop (17 g) in liquid then take by mouth once daily. 116 g 5 03/02/20 21 Active clobetasol cream 0.05% (TEMOVATE) 0.05 % creamIndications :Contact dermatitis, unspecified contact dermatitis type, unspecified trigger Apply 1-2 times a day to affected area until resolved. Do not use >2 weeks in a row. 30 g 03/30/20 21 Active MAGIC MOUTHWASH 1:1:1 DIPHEN/MAALOX/LI DO (AMB SPECIAL MIX)Indications: Mouth sores Take 15 mL by mouth 6 times daily. Swish and spit. 450 mL 12/31/19 22 Active Additional Information Patient taking differently: (No dose reported), Oral 6X DAY, Swish and spit., Reported on 11/06/2024 nebulizer accessories kitIndications:M ild persistent asthma without complication (HC) For home use. Length of need: prn 1 Kit 01/06/20 22 Active lidocaine, viscous, (XYLOCAINE) 2 % liquidIndication s:Canker sores oral Swish and spit 15 mL by mouth every 4 hours if needed for Stomatitis. 100 mL 07/14/19 23 Active MAGIC MOUTHWASH 1:1:1 DIPHEN/MAALOX/LI DO (AMB SPECIAL MIX)Indications: Mouth sore Swish and spit 5-10 mL by mouth every 4 hours if needed for Mouth Sores. 240 mL 08/17/19 23 Active Additional Information Patient not taking.Reported on 11/06/2024 lidocaine, viscous, (XYLOCAINE) 2 % liquidIndication s:Mouth sore Swish and spit 15 mL by mouth every 4 hours if needed for Stomatitis. 100 mL 08/18/19 23 Active Additional Information Patient not taking.Reason: duplicate, Reported on 11/06/2024 fluticasone (50 mcg per actuation) nasal solution (FLONASE)Indicat ions:Dysfunction of both eustachian tubes Inhale 2 Sprays into affected nostril(s) once daily. 11.1 mL 3 04/10/20 23 Active DULoxetine (CYMBALTA) 30 mg Delayed-release capsuleIndicatio ns:Anxiety,Depre ssion, recurrent Take 1 tablet daily x 1 week then increase to 2 tablets daily 180 Capsule 3 04/10/20 23 Active nebulizer accessories kitIndications:M ild persistent asthma without complication (HC) For home use. Length of need: prn 1 Kit 04/30/19 24 Active albuterol (PROVENTIL) 0.083 % neb solutionIndicati ons:Mild persistent asthma without complication (HC) Inhale 3 mL (2.5 mg) via a nebulizer every 4 hours if needed for Shortness of Breath 1st choice or Wheezing 1st choice. 75 mL 04/30/19 24 Active triamcinolone 0.1% (KENALOG IN ORABASE) 0.1 % pasteIndications :Mouth sore Apply small amount to affected area in mouth 2 times a day. 5 g 07/18/19 24 Active ketoconazole 2% topical (NIZORAL) creamIndications :Yeast dermatitis Apply topically to affected area(s) two times daily. 60 g 07/18/19 24 Active hydrOXYzine HCL (ATARAX) 25 mg tabletIndication s:Anxiety Take 1-2 Tablets (25-50 mg) by mouth every 8 hours if needed for Anxiety (sleep). 40 Tablet 07/26/19 24 Active Additional Information Patient not taking.Reported on 11/06/2024 omeprazole 20 mg tabletIndication s:Gastric reflux Take 1 Tablet (20 mg) by mouth once daily before a meal. 30 Tablet 01/10/20 24 Active cetirizine (ZYRTEC) 10 mg tabletIndication s:Environmental allergies,Exacer bation of asthma, unspecified asthma severity, unspecified whether persistent (HC) Take 1 Tablet (10 mg) by mouth once daily. 90 Tablet 3 01/29/20 24 Active benzonatate (Tessalon Perles) 100 mg capsuleIndicatio ns:Cough, unspecified type,Moderate persistent asthma with exacerbation (HC),Viral URI Take 1 Capsule (100 mg) by mouth 3 times daily if needed for Cough. 30 Capsule 02/18/20 24 Active triamcinolone 0.5 % creamIndications :Rash Apply topically to affected area(s) two times daily. Apply to lower back rash until resolved. 30 g 03/03/20 24 Active budesonide (PULMICORT RESPULES) 0.5 mg/2 mL neb suspensionIndica tions:Mild persistent asthma with exacerbation (HC) Inhale 2 mL (0.5 mg) via a nebulizer two times daily. 360 mL 3 06/04/19 25 Active mometasone-formo terol (Dulera) 200-5 mcg/actuation inhalerIndicatio ns:Mild persistent asthma without complication (HC) Inhale 2 Puffs by mouth two times daily. 13 g 3 11/07/19 25 Active albuterol HFA (PRO-AIR; VENTOLIN; PROVENTIL) 90 mcg/actuation inhalerIndicatio ns:Moderate persistent asthma with exacerbation (HC) INHALE 1 TO 2 PUFFS BY MOUTH EVERY 4 HOURS NEEDED FOR SHORTNESS OF BREATH OR WHEEZING (1ST CHOICE) 8.5 g 3 11/07/19 25 Active mometasone-formo terol (Dulera) 200-5 mcg/actuation inhalerIndicatio ns:Mild persistent asthma without complication (HC) Inhale 2 Puffs by mouth two times daily. 13 g 3 06/18/19 25 025 Discontin ued(Reord er (E-cancel not sent)) albuterol HFA 90 mcg/actuation inhalerIndicatio ns:Moderate persistent asthma with exacerbation (HC) INHALE 1 TO 2 PUFFS BY MOUTH EVERY 4 HOURS NEEDED FOR SHORTNESS OF BREATH OR WHEEZING (1ST CHOICE) 8.5 g 3 07/26/19 25 025 Discontin ued(Reord er (E-cancel not sent)) Hospital, Clinic, or Other Facility Administered Medication Ordered Dose Route Frequency Start Date End Date Status levonorgestrel intrauterine device (MIRENA) 1 DeviceIndications:Encounter for insertion of intrauterine contraceptive device (IUD) 1 Device IU Q 5 YEARS 05/26/2020 Active Active Problems Problem Noted Date Diagnosed Date Prediabetes 06/22/2024 Iron deficiency anemia 03/27/2023 Pap smear for cervical cancer screening 02/22/20 Overview (04/03/2022): 02/2022 NIL. Plan: Pap/HPV due 02/2025. Severe episode of recurrent major depressive disorder, without psychotic features 08/20/2020 Herpes simplex type 1 infection 06/15/2020 hemorrhage 06/15/2020 Vaginal delivery 06/15/2020 Acute anxiety 09/23/2016 depression 09/23/2016 Cold sore 06/15/2014 Overview (06/15/2014): HSV I positive antibody test in 05/2014. 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 CHILO Olson.....08/08/2019 10:30 AM care in third trimester 07/22/2015 06/04/2024 Overview (09/20/2015): It's a girl! TdaP 07/22/15 GBS negative Encounters Date Type Department Care Team Description 11/08/2024 Travel 11/06/2024 11:40 AM CDT Office Visit [facility] [address] [place] [address] Anahy Alford DO Contraception (Discuss removing IUD ) 11/06/2024 Telephone [facility] [address] [place] [address] Anahy Alford DO IUD ([place]) 11/06/2024 Medical Messaging [facility] [address] [place] [address] Anahy Alford DO 11/05/2024 Travel 10/14/2024 9:30 AM CDT Phone Office Visit [facility] [id number] [place] [address] Dione Molina PsyD, LP Phone Visit; [facility] Plan 10/14/2024 Travel 08/29/2024 4:00 PM CDT Phone Office Visit [facility] [id number] [place] [address] Dione Molina PsyD, LP Phone Visit 08/29/2024 Travel 08/26/2024 1:05 PM CDT Office Visit [facility] [address] [place] [address] Anahy Alford DO Follow Up 08/26/2024 10:30 AM CDT Phone Office Visit [facility] [address] [place] [address] Dione Molina PsyD, ADDIE Phone Visit 08/26/2024 Travel from Last 3 Months Immunizations Immunization Administration Dates Next Due DTP 03/16/1998,01/12/1998,1997 DTaP [...] drink = 0.6 oz pur e alcohol) PHQ-2 Answer Date Recorded PHQ-2 TOTAL SCORE 4 06/17/2024 Social Connections Answer Date Recorded Do you [...] is your housing situation today? 1 01/10/2024 Utilities Answer Date Recorded Do you have trouble paying f or utilities (for example, heat, electricity, water, phone)? 1 01/10/2024 Comments No Sex and Gender Information Value Date Recorded Sex Assigned at Not on file Legal Sex Female 6:20 AM STORAGE BATTERY CHARGER Gender Identity Not on file Sexual Orientation Not on file Obstetrics History Para Term AB IAB SAB Ectopic Multiple Livin g Live Births 2 2 2 2 2 Date Outcome GA Total Labor Labor/2nd/3rd Weight Sex Type Anes PTL Odette A1 A5 Name Clin Term Vag Living Term Living Last Filed Vital Signs Vital Sign Reading Time Taken Comments Blood Pressure 110/75 11/06/2024 11:53 AM CDT Pulse 83 11/06/2024 11:53 AM CDT Temperature 36.9 C (98.4 F) 06/17/2024 1:08 PM STORAGE BATTERY CHARGER Respiratory Rate 18 01/15/2024 4:44 PM CDT Oxygen Saturation 99% 11/06/2024 11:53 AM CDT Inhaled Oxygen Concentration - - Weight 87.4 kg (192 lb 9.6 oz) 11/06/2024 11:53 AM CDT Height 161.9 cm (5' 3.75) 01/15/2024 4:44 PM CD T Body Mass Index 33.32 01/15/2024 4:44 PM CDT Plan of Treatment Upcoming Encounters Date Type Department Care Team (Late st Contact Info) Description 12/02/2024 1:55 PM CDT Office Visit [facility] [address] [place] [address] Anahy Alford DO [address] [place] [address] Health Maintenance Due Date Last Done Comments COVID-19 vaccine series (2023- season) 2023 Influenza Vaccine (#1) 2024 , 03/06/2022, 12/26/2019, Additional history exists BMI (ht and wt on same day) for age 18+ 01/14/2025 01/15/2024, 02/15/2023, 04/13/2022, Additional history exists Pap test for age 21-65 03/06/2025 03/06/2022, 2018 Depression screening for age 12+ 06/17/2025 06/17/2024, 11/22/2023, 10/09/2023, Additional history exists Tetanus booster 12/25/2029 12/26/2019, 06/23, 11/09/2009 Hepatitis B series for 19+ Completed 03/16, 1997, 1997 HIV for age 15-65 Completed 07/22/2019, 03/08/2015 Hepatitis C screening for ag e 18-79 Completed 07/22/2019, 03/08/2015 Pneumococcal series for age 6-49 Completed 03/06/20 22 Procedures Procedure Name Priority Date/Time Associated Diagnosis Comments COMP METABOLIC PANEL Routine 11/06/2024 12:48 PM CDT Nausea Gastric reflux HEMOGLOBIN Routine 11/06/2024 12:48 PM CDT Fatigue, unspecified type HEMOGLOBIN A1C MONITORING (POCT) Routine 11/06/2024 12:47 PM CDT Prediabetes DIABETES SPECIALIST THIN PREP PAP SCREEN IMAGED Routine 03/06/2022 1:24 PM STORAGE BATTERY CHARGER Screening for cervical cancer ANTI HIV 1/2 Routine 07/22/2019 11:29 AM CDT Encounter for supervision of normal first in first trimester (HC) ANTI HCV Routine 07/22/2019 11:29 AM CDT Encounter for supervision of normal first in first trimester (HC) from Last 3 Months or Most Recently Relevant to Health Maintenance Results * HEMOGLOBIN (11/06/2024 12:48 PM CDT) HEMOGLOBIN 14.9 11.7 - 15.5 g/dL [facility] Blood BLOOD SPECIMEN / Unknown 11/06/2024 12:48 PM CDT 11/06/2024 12:49 PM CDT us Anahy Alford DO HEMATOLOGY Final Resu lt [facility] [address] [place] [address], [facility] [address] [place] [address] * COMP METABOLIC PANEL (11/06/2024 12:48 PM CDT) GLUCOSE 94 65 - 99 mg/dL [facility] Comment: Fasting reference interval UREA NITROGEN (BUN) 11 7 - 25 mg/dL [facility] CREATININE 0.69 0.50 - 0.96 mg/dL [facility] EGFR 122 > OR = 60 mL/min/1. 73m2 [facility] BUN/CREATININE RATIO SEE NOTE: 6 - 22 (calc) [facility] Comment: Not Reported: BUN and Creatinine are within reference range. SODIUM 138 135 - 146 mmol/L [facility] POTASSIUM 4.3 3.5 - 5.3 mmol/L [facility] CHLORIDE 103 98 - 110 mmol/L [facility] CARBON DIOXIDE 27 20 - 32 mmol/L [facility] CALCIUM 9.3 8.6 - 10.2 mg/dL [facility] PROTEIN, TOTAL 7.7 6.1 - 8.1 g/dL [facility] ALBUMIN 4.7 3.6 - 5.1 g/dL [facility] GLOBULIN 3.0 1.9 - 3.7 g/dL (calc) [facility] ALBUMIN/GLOBULIN RATIO 1.6 1.0 - 2.5 (calc) [facility] BILIRUBIN, TOTAL 0.5 0.2 - 1.2 mg/dL [facility] ALKALINE PHOSPHATASE 121 31 - 125 U/L [facility] AST 13 10 - 30 U/L [facility] ALT 15 6 - 29 U/L [facility] Blood BLOOD SPECIMEN / Unknown 11/06/2024 12:48 PM CDT 11/06/2024 12:49 PM CDT Anahy Alford DO CHEMISTRY Final Resu lt [facility] [address] [address], [facility] [address] * HEMOGLOBIN A1C MONITORING (POCT) (11/06/2024 12:47 PM CDT) POC HEMOGLOBIN A1C 5.3 <6.0 % OF TOTAL HGB [facility] Comment: Any point of care results exhibiting inconsistency with the patient's clinical status should be repeated using a different testing method. Blood BLOOD SPECIMEN / Unknown 11/06/2024 12:47 PM CDT 11/06/2024 12:48 PM CDT Anahy Alford DO CHEMISTRY Final Resu lt [facility] [address] [place] [address], [facility] [address] [place] [address] * DIABETES SPECIALIST THIN PREP PAP SCREEN IMAGED [[id number]] (03/06/2022 1:24 PM STORAGE BATTERY CHARGER) Case Report Gynecologic Cytology Report Case: [id number] Authorizing Provider: Marleen Tatum MD Collected: 03/06/2022 1324 Ordering Location: [facility] Received: 03/06/2022 1410 Clinic First Screen: Dhruv Mooney Rescreen: Irma Link Specimen: DIABETES SPECIALIST ThinPrep Vial Screening, Cervical 03/31/2022 4:51 PM STORAGE BATTERY CHARGER [facility] [employer] [facility] INTERPRETATION/ RESULT NEGATIVE FOR INTRAEPITHELIAL LESION OR MALIGNANCY (NIL) (none) 03/31/2022 4:51 PM STORAGE BATTERY CHARGER [facility] at [address] STORAGE BATTERY CHARGER SPECIMEN ADEQUACY Satisfactory for evaluation No endocervical component seen 03/31/2022 4:51 PM STORAGE BATTERY CHARGER [facility] [employer] [facility] HPV REQUEST HPV not requested 2021 4:51 PM STORAGE BATTERY CHARGER [facility] Date of LMP 02/20/2022 03/31/2022 4:51 PM STORAGE BATTERY CHARGER [facility] Last Pap Date 10/08/18 03/31/2022 4:51 PM STORAGE BATTERY CHARGER [facility] Last Pap Result NIL 4:51 PM STORAGE BATTERY CHARGER [facility] Abnormal Pap or [place] Bx in last 5 years No 03/31/2022 4:51 PM STORAGE BATTERY CHARGER [facility] Menstrual Status Regular Periods 03/31/2022 4:51 PM STORAGE BATTERY CHARGER [facility] [place] Bx Done Today No 03/31/2022 4:51 PM STORAGE BATTERY CHARGER [facility] Additional Information None given 03/31/2022 4:51 PM STORAGE BATTERY CHARGER [facility] Comment: Cytology is screened at [facility], [facility] Laboratory - [address], [place] [address] and [facility] - [address], [place] [address] and [facility] - [address] [place] [address] Interpreted at [facility] - [address], [place] [address] Automated Review Successful 03/31/2022 4:51 PM STORAGE BATTERY CHARGER [facility] Comment:Specimen processed s uccessfully by automated public service representative device, [employer] Imaging System, [employer] Note The pap test is a screening technique, not a diagnostic procedure. It is used primarily to screen for squamous cancers and precursor lesions. Published studies have shown that it is subject to both false negative and false positive results. The pap test should not be used as the sole means to diagnose or exclude pre-malignant and malignant lesions. 03/31/2022 4:51 PM STORAGE BATTERY CHARGER [facility] Other (Cervical) Non-Blood / Unknown 03/06/2022 1:24 PM STORAGE BATTERY CHARGER 03/06/2022 2:10 PM STORAGE BATTERY CHARGER Marleen Tatum MD PATHOLOGY/CYTOLOGY Final Re sult [facility] [address] [place] [address], [place] * ANTI HCV (07/22/2019 11:29 AM CDT) HEPATITIS C ANTIBODY Non-React oscar Non-React oscar 07/22/2019 4:33 PM CDT [facility] Comment:Antibodies to HCV no t detected; does not exclude the possibility of exposure to HCV. Blood BLOOD SPECIMEN / Unknown Venipuncture / Unknown 07/22/2019 11:29 AM CDT 07/22/2019 11:30 AM CDT Malika CASTRO SEND OUTS Final R esult [facility] [address] [place] [address], [place] * ANTI HIV 1/2 (07/22/2019 11:29 AM CDT) HIV-1/HIV-2 ANTIBODY Non-Reacti ve Non-Reacti ve 07/22/2019 4:35 PM CDT [facility] Comment:HIV-1 p24 and HIV-1/ HIV-2 Ab not detected. Blood BLOOD SPECIMEN / Unknown Venipuncture / Unknown 07/22/2019 11:29 AM CDT 07/22/2019 11:30 AM CDT us Malika CASTRO SEND OUTS Final R esult [facility] [address] [place] [address], [place] from Last 3 Months or Most Recently Relevant to Health Maintenance Care Teams Radiological Technician Relationship Specialty Start Date End Date Anahy Alford DO [address] [place] [address] PCP - General Family Practice 12/22/15
[2024-11-21 21:02] VITALS: BP 146/80; PULSE 99; RESP 16; TEMP 36.4; O2SAT 100; BMI 34.6
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
[2024-11-21 23:17] VITALS: BP 135/70; PULSE 85; RESP 16; TEMP 36.7; O2SAT 100
[2024-11-21 23:18] VITALS: BP 135/70; PULSE 85; RESP 16; TEMP 36.7
== END 2024-11-21 23:19 | disposition home or self-care (01) ==
LOC: ED 23:00
PROVIDERS: Emergency Provider Emergency Medicine; PCP Family Medicine
DX: S60.122A Contusion of left index finger with damage to nail, initial encounter (principal); W22.8XXA Striking against or struck by other objects, initial encounter
CPT/HCPCS: 11730; 99282; 99283

== ENCOUNTER 2024-12-23 20:05 | Emergency (ER) | payer OTHER, SELFPAY ==
--- OUTSIDE RECORDS SUMMARY | 2002-08-27 07:00 | XMS_ITS | Continuity of Care Document ---
Author Organization [facility] Address [address] [address] [place] [address] Phone Care Team Providers Care Cash Office Worker Name Role Phone Unavailable Unavailable Unavailable Advance Directives Directive Yes / No Effective Date File Name No Information Encounters Encounter Description Practice Location Reason(s) For Visit Diagnoses Date Provider Providers Copied on Encounter [facility], [address] [address], [place], [place], [id number], tel:[phone] [facility] No Information 7200 3 No Information Referring Provider: Kajal Emanuel MD G, [address] [place] [address], [id number]. tel:[phone] Family History Family Member Type Diagnosis Age At Onset No Information Payers Payer name Insurance type Covered alliance party ID Authoriza tion(s) No Information Social History Type Description Quantity Date Captured Comments Sex Female Smoking Status No Information Chief Complaint And Reason For Visit No Information Reason For Referral Reason For Referral No Information History Of Present Illness Encounter Date Complaint History Of Prese nt Illness No Information Functional Status Date Functional Assessmen t No Information Instructions Date Instruction Additional Infor mation No Information Assessments Type Assessment Date No Information Patient Care Teams Name Effective Dates (start - stop) Status Members No Information
--- OUTSIDE RECORDS SUMMARY | 2024-12-23 20:07 | XMS_ITS | Clinical Summary ---
Author Organization [employer] [facility] Address [address] [place] [id number] Care Team Providers Care Laryngologist Name Role Phone Anahy Alford DO Primary Care Provider [phone] Allergies Active Allergy Reactions Criticality Noted Date [...] in a row. 30 g 1 Active nebulizer accessories kitIndications:M ild persistent asthma without complication (HC) For home use. Length of need: prn 1 Kit 2 Active fluticasone (50 mcg per actuation) nasal [...] Wheezing 1st choice. 75 mL 4 Active ketoconazole 2% topical (NIZORAL) creamIndications [...] once daily. 90 Tablet 3 4 Active triamcinolone 0.5 % creamIndications :Rash Apply topically to affected area(s) two times daily. Apply to lower back rash until resolved. 30 g 4 Active mometasone-formo terol (Dulera) 200-5 mcg/actuation inhalerIndicatio ns:Mild persistent asthma without complication (HC) Inhale 2 Puffs by mouth two times daily. 13 g 3 5 Active albuterol HFA (PRO-AIR; VENTOLIN; PROVENTIL) 90 mcg/actuation inhalerIndicatio ns:Moderate persistent asthma with exacerbation (HC) INHALE 1 TO 2 PUFFS BY MOUTH EVERY 4 HOURS NEEDED FOR SHORTNESS OF BREATH OR WHEEZING (1ST CHOICE) 8.5 g 3 5 Active mupirocin 2% ointmentIndicati ons:Injury to fingernail of left hand, subsequent encounter Apply topically to affected area(s) three times daily for 5 days. 22 g 5 12/25/19 25 Active MAGIC MOUTHWASH 1:1:1 DIPHEN/MAALOX/LI DO (AMB SPECIAL MIX)Indications: Mouth sores Take 15 mL by mouth 6 times daily. Swish and spit. 450 mL 2 12/03/19 25 Discontin ued(*Silva ent states no longer taking) lidocaine, viscous, (XYLOCAINE) 2 % liquidIndication s:Canker sores oral Swish and spit 15 mL by mouth every 4 hours if needed for Stomatitis. 100 mL 3 12/03/19 25 Discontin ued(*Med complete/ Regimen complete/ Level of care change) MAGIC MOUTHWASH 1:1:1 DIPHEN/MAALOX/LI DO (AMB SPECIAL MIX)Indications: Mouth sore Swish and spit 5-10 mL by mouth every 4 hours if needed for Mouth Sores. 240 mL 3 12/03/19 25 Discontin ued(*Silva ent states no longer taking) lidocaine, viscous, (XYLOCAINE) 2 % liquidIndication s:Mouth sore Swish and spit 15 mL by mouth every 4 hours if needed for Stomatitis. 100 mL 3 12/03/19 25 Discontin ued(*Silva ent states no longer taking) triamcinolone 0.1% (KENALOG IN ORABASE) 0.1 % pasteIndications :Mouth sore Apply small amount to affected area in mouth 2 times a day. 5 g 4 12/03/19 25 Discontin ued(*Silva ent states no longer taking) benzonatate (Tessalon Perles) 100 mg capsuleIndicatio ns:Cough, unspecified type,Moderate persistent asthma with exacerbation (HC),Viral URI Take 1 Capsule (100 mg) by mouth 3 times daily if needed for Cough. 30 Capsule 4 12/03/19 25 Discontin ued(*Med complete/ Regimen complete/ Level of care change) budesonide (PULMICORT RESPULES) 0.5 mg/2 mL neb suspensionIndica tions:Mild persistent asthma with exacerbation (HC) Inhale 2 mL (0.5 mg) via a nebulizer two times daily. 360 mL 3 5 12/03/19 25 Discontin ued(*Silva ent states no longer taking) Hospital, Clinic, or Other Facility Administered Medication [...] present) No problems associated with this episode. Tiffanie Bell, LANGC.....08/08/2019 10:30 AM care in third trimester 07/22/2015 06/04/2024 Overview (09/20/2015): It's a girl! TdaP 07/22/15 GBS negative Encounters Date Type Department Care Team Description 12/23/2024 Travel 12/19/2024 9:05 AM CDT Office Visit [facility] [address] [place] [address] Marleen Tatum MD Neck Pain/problem (started 2 days ago started as jaw then moved to neck pain only on left side ); Nail injury (pointer fingernail on left hand happened a month ago when in the shower. pain has stayed the same but is very painful and has a burning and sharp pain. ) 12/19/2024 Travel 12/04/2024 10:00 AM CDT Phone Office Visit [facility] [address] [place] [address] Dione Molina PsyD, ADDIE Phone Visit 12/04/2024 Travel 12/02/2024 1:55 PM CDT Office Visit [facility] [address] [place] [address] Anahy Alford DO IUD (removal); Nose Problem (Irritation in nose from nasal spray? ) 12/02/2024 Travel 11/28/2024 9:00 AM CDT Office Visit [facility] [address] [place] [address] Clemencia Rebolledo PA Back Pain 11/28/2024 Travel 11/27/2024 Telephone [facility] [address] [place] [address] Anahy Alford DO Appointment 11/08/2024 Travel 11/06/2024 11:40 AM CDT Office Visit [facility] [address] [place] [address] Anahy Alford DO Contraception (Discuss removing IUD ) 11/06/2024 Telephone [facility] [address] [place] [address] Anahy Alford DO IUD ([place]) 11/06/2024 Medical Messaging [facility] [address] [facility] [place] [address] Anahy Alford DO 11/05/2024 Travel 10/14/2024 9:30 AM CDT Phone Office Visit [facility] [address] [place] [address] Dione Molina PsyD, LP Phone [facility] 10/14/2024 Travel from Last 3 Months Immunizations Immunization [...] on file Legal Sex Female 6:20 AM DIETITIAN HELPER Gender Identity Not on file Sexual Orientation Not on file Obstetrics History Para Term AB IAB SAB Ectopic Multiple Livin g Live Births 2 2 2 2 2 Date Outcome GA Total Labor Labor/2nd/3rd Weight Sex Type Anes PTL Odette A1 A5 Name Clin Term Vag Living Term Living Last Filed Vital Signs Vital Sign Reading Time Taken Comments Blood Pressure 138/83 12/19/2024 9:19 AM CDT Pulse 82 12/19/2024 9:19 AM CDT Temperature 36.9 C (98.4 F) 06/17/2024 1:08 PM DIETITIAN HELPER Respiratory Rate 18 01/15/2024 4:44 PM CDT Oxygen Saturation 95% 12/19/2024 9:19 AM CDT Inhaled Oxygen Concentration - - Weight 87.4 kg (192 lb 9.6 oz) 11/06/2024 11:53 AM CDT Height 161.9 cm (5' 3.75) 01/15/2024 4:44 PM CD T Body Mass Index 33.32 01/15/2024 4:44 PM CDT Plan of Treatment Health Maintenance Due Date Last Done Comments COVID-19 vaccine series ( season) 2024 Influenza Vaccine (#1) 2024 , 03/06/2022, 12/26/2019, Additional history exists BMI (ht and wt on same day) for age 18+ 01/14/2025 01/15/2024, 02/15/2023, 04/13/2022, Additional history exists Pap test for age 21-65 03/06/2025 03/06/2022, 2018 Depression screening for age 12+ 06/17/2025 06/17/2024, 11/22/2023, 10/09/2023, Additional history exists Tetanus booster 12/25/2029 12/26/2019, 0304/2015, 11/09/2009 RSV vaccine for adults or (1 - 1-dose 75+ series) 2072 Hepatitis B series for 19+ Completed 03/16, [...] (POCT) Routine 11/06/2024 12:47 PM CDT Prediabetes PROCESS DESIGN ENGINEER THIN PREP PAP SCREEN IMAGED Routine 03/06/2022 1:24 PM DIETITIAN HELPER Screening for cervical cancer ANTI HIV 1/2 Routine 07/22/2019 11:29 AM CDT Encounter for supervision of normal first in first trimester (HC) ANTI HCV Routine 07/22/2019 11:29 AM CDT Encounter for supervision of normal first in first trimester (HC) from Last 3 Months or Most Recently Relevant to Health Maintenance Results * HEMOGLOBIN (11/06/2024 12:48 PM CDT) HEMOGLOBIN 14.9 11.7 - 15.5 g/dL [facility] Blood BLOOD SPECIMEN / Unknown 11/06/2024 12:48 PM CDT 11/06/2024 12:49 PM CDT us Anahy Alford DO HEMATOLOGY Final Resu lt [facility] [address] [place] [address], [facility] [address] [place] [address] * COMP METABOLIC PANEL (11/06/2024 12:48 PM CDT) GLUCOSE 94 65 - 99 mg/dL [facility] Comment: Fasting reference interval UREA NITROGEN (BUN) 11 7 - 25 mg/dL [facility] CREATININE 0.69 0.50 - 0.96 mg/dL [facility] EGFR 122 > OR = 60 mL/min/1. 73m2 [facility] BUN/CREATININE RATIO SEE NOTE: 6 (calc) [facility] Comment: Not Reported: BUN and Creatinine [...] 6 - 29 U/L [facility] Blood BLOOD SPECIMEN / Unknown 11/06/2024 12:48 PM CDT 11/06/2024 12:49 PM CDT us Anahy Alford DO CHEMISTRY Final Resu lt [facility] [employer] [facility] [address] [place] [address], [facility] [address] [place] [address] * HEMOGLOBIN A1C MONITORING (POCT) (11/06/2024 12:47 PM CDT) POC HEMOGLOBIN A1C 5.3 <6.0 % OF TOTAL HGB [facility] Comment: Any point of care results exhibiting inconsistency with the patient's clinical status should be repeated using a different testing method. Blood BLOOD SPECIMEN / Unknown 11/06/2024 12:47 PM CDT 11/06/2024 12:48 PM CDT us Anahy Alford DO CHEMISTRY Final Resu lt [facility] [address] [place] [address], [place] [phone] [facility] [address] [place] [address] * PROCESS DESIGN ENGINEER THIN PREP PAP SCREEN IMAGED [[id number]] (03/06/2022 1:24 PM DIETITIAN HELPER) Case Report Gynecologic Cytology Report Case: [id number] Authorizing Provider: Marleen Tatum MD Collected: 03/06/2022 1324 Ordering Location: [facility] Received: 03/06/2022 1410 Clinic First Screen: Dhruv Mooney Rescreen: Irma Link Specimen: PROCESS DESIGN ENGINEER ThinPrep Vial Screening, Cervical 03/31/2022 4:51 PM DIETITIAN HELPER [facility] INTERPRETATION/ RESULT NEGATIVE FOR INTRAEPITHELIAL LESION OR MALIGNANCY (NIL) (none) 03/31/2022 4:51 PM DIETITIAN HELPER [facility] ENTRAL [facility]ORAT[facility] at 1651 DIETITIAN HELPER SPECIMEN ADEQUACY Satisfactory for evaluation No endocervical component seen 03/31/2022 4:51 PM DIETITIAN HELPER [facility] HPV REQUEST HPV not requested 2021 4:51 PM DIETITIAN HELPER [facility] Date of LMP 02/20/2022 03/31/2022 4:51 PM DIETITIAN HELPER [facility] Last Pap Date 10/08/18 03/31/2022 4:51 PM DIETITIAN HELPER [facility] Last Pap Result NIL 4:51 PM DIETITIAN HELPER [facility] Abnormal Pap or Levels Bx in last 5 years No 03/31/2022 4:51 PM DIETITIAN HELPER [facility] Menstrual Status Regular Periods 03/31/2022 4:51 PM DIETITIAN HELPER [facility] Levels Bx Done Today No 03/31/2022 4:51 PM DIETITIAN HELPER [facility] Additional Information None given 03/31/2022 4:51 PM DIETITIAN HELPER [facility] EN[facility] Comment: Cytology is screened at [facility] - [address], [place] [address] and [facility] - [address], [place] [address] and [facility] - [address] [place] [address] Interpreted at [facility] - [address], [place] [address] Automated Review Successful 03/31/2022 4:51 PM DIETITIAN HELPER [facility] EN[facility] Comment:Specimen processed s uccessfully by automated bilingual receptionist device, ThinPrep Imaging System, [employer] Note The pap test is a screening technique, not a diagnostic procedure. It is used primarily to screen for squamous cancers and precursor lesions. Published studies have shown that it is subject to both false negative and false positive results. The pap test should not be used as the sole means to diagnose or exclude pre-malignant and malignant lesions. 03/31/2022 4:51 PM DIETITIAN HELPER [facility] EN[facility] Other (Cervical) Non-Blood / Unknown 03/06/2022 1:24 PM DIETITIAN HELPER 03/06/2022 2:10 PM DIETITIAN HELPER us Marleen Tatum MD PATHOLOGY/CYTOLOGY Final Re sult [facility] [address] [place] [address], [place] * ANTI HCV (07/22/2019 11:29 AM CDT) HEPATITIS C ANTIBODY Non-React oscar Non-React oscar 07/22/2019 4:33 PM CDT [facility] TRAL LABORATORY Comment:Antibodies to HCV no t detected; does not exclude the possibility of exposure to HCV. Blood BLOOD SPECIMEN / Unknown Venipuncture / Unknown 07/22/2019 11:29 AM CDT 07/22/2019 11:30 AM CDT us Malika CASTRO SEND OUTS Final R esult [facility] [address] [place] [address], [place] * ANTI HIV 1/2 (07/22/2019 11:29 AM CDT) HIV-1/HIV-2 ANTIBODY Non-Reacti ve Non-Reacti ve 07/22/2019 4:35 PM CDT [facility] Comment:HIV-1 p24 and HIV-1/ HIV-2 Ab not detected. Blood BLOOD SPECIMEN / Unknown Venipuncture / Unknown 07/22/2019 11:29 AM CDT 07/22/2019 11:30 AM CDT Malika CASTRO SEND OUTS Final R esult Performing Organization Address City/[facility]/ZIP Co de Phone Number [facility] [address] [place] [address], [place] from Last 3 Months or Most Recently Relevant to Health Maintenance Care Teams Laryngologist Relationship Specialty Start Date End Date Anahy [place]ford [place] [address] PCP - General Family Practice 12/22/15
[2024-12-23 20:21] VITALS: BP 150/96; PULSE 78; RESP 18; TEMP 36.6; O2SAT 100; BMI 33.7
[2024-12-23 21:07] LABS: PCR FLU A Negative PCR FLU A (Negative); PCR FLU B Negative PCR FLU B (Negative); PCR RSV Negative PCR RSV (Negative); SARS PCR* Negative SARS-CoV-2 (Negative)
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
[2024-12-23] MEDS: PSEUDOEPHEDRINE HCL 30 MG TABLET 60 MG PO (22:30)
[2024-12-23 22:50] VITALS: BP 135/74; PULSE 74; RESP 18; TEMP 36.6; O2SAT 100
[2024-12-23 22:51] VITALS: BP 135/74; PULSE 74; RESP 18; TEMP 36.6
== END 2024-12-23 22:52 | disposition home or self-care (01) ==
PROVIDERS: Emergency Provider Family Medicine; PCP Family Medicine
DX: J03.90 Acute tonsillitis, unspecified (principal)
CPT/HCPCS: 87631; 87651; 99283; 99284; A9270; J7512